=== PATIENT | male | born 1990 | race African-American/Black ===

== ENCOUNTER 2018-01-03 09:30 | Emergency (ER) | payer OTHER ==
[~2018-01-03] VITALS: Ht 182.9 cm; Wt 95.3 kg
[~2018-01-03 09:30] MED LIST: CLARITIN10 MG PO; COLACE100 MG PO; NOHOMEMEDICATIONS; NORCO 5-325 TA1 EACH PO; PREDNISONE 20 M20 M1 PO
[2018-01-03 09:53] LABS: ABSOLUTE NEUTROPHILS 8.8 thou/uL (1.4-8.2); BASOPHILS 0.2 % (0.0-2.0); HEMATOCRIT 45.4 % (42.0-52.0); HEMOGLOBIN 15.3 gm/dL (14.0-18.0); LYMPHOCYTES 15.9 % (24.0-44.0); MCH 28.1 pg (26.0-34.0); MCHC 33.8 g/dL (28.0-37.0); MCV 83.3 fL (80.0-100.0); MONOCYTES 5.5 % (1.0-8.0); PLATELET COUNT 263 thou/uL (150-400); POLYS 78.4 % (36.0-66.0); RBC 5.45 mil/uL (4.50-6.00); RDW 13.2 % (10.5-14.5); WBC 11.3 thou/uL (4.0-11.0)
[2018-01-03 10:00] LABS: CALCIUM 9.7 mg/dL (8.5-10.1); CREATININE 1.4 mg/dL (0.7-1.3); POTASSIUM 3.8 mmol/L (3.5-5.1)
[2018-01-03 10:06] LABS: ALBUMIN 4.7 g/dL (3.4-5.0); TOTAL PROTEIN 9.2 g/dL (6.4-8.2)
[2018-01-03 11:11] LABS: URINE BLOOD TRACE (Negative); URINE CLARITY CLEAR; URINE COLOR YELLOW; URINE GLUCOSE-RANDOM* NEGATIVE (Negative); URINE KETONES TRACE (Negative); URINE NITRITE-REFLEX NEGATIVE (Negative); URINE PROTEIN (DIPSTICK) 1+ (Negative); URINE SPECIFIC GRAVITY >= 1.030 (1.005-1.035); URINE UROBILINOGEN 0.2 E.U./dl (0.2-1.0)
[2018-01-03 11:14] LABS: URINE LEUKOCYTES-REFLEX TRACE (Negative)
[2018-01-03 11:15] LABS: ICTOTEST (BILI CONFIRMATORY) Negative (Negative); URINE BILIRUBIN NEGATIVE (Negative)
[2018-01-03 11:26] LABS: SQUAMOUS 0-3 Few /LPF (0-3)
[2018-01-03 11:27] LABS: CASTS None Seen /LPF (None Seen); MUCUS >6 Heavy strn/LPF (None Seen); URINE WBC-REFLEX 6-15 Few /HPF (0-5)
[2018-01-03] MEDS ORDERED: BENTYL 20 MG TA20 M1 PO (11:27)
[2018-01-03] MEDS ORDERED: PHENERGAN 25 MG25 M1 PO (11:27)
[2018-01-03 11:28] LABS: BACTERIA-REFLEX 1-9 Few /HPF (None Seen); CRYSTALS None Seen /LPF (None Seen); URINE RBC 3-10 Few /HPF (0-2)
== END 2018-01-03 12:04 | disposition home or self-care (01) ==
LOC: ER 09:30
PROVIDERS: Physician Assistant
DX: R10.11 Right upper quadrant pain (principal); R11.2 Nausea with vomiting, unspecified

== ENCOUNTER 2021-02-27 12:56 | Emergency (ER) | payer OTHER ==
[~2021-02-27] VITALS: Ht 182.9 cm; Wt 88.5 kg
[~2021-02-27 12:56] MED LIST changes: +BENTYL 20 MG TA20 M1 PO; +PHENERGAN 25 MG25 M1 PO
[2021-02-27 12:58] VITALS: BP 130/76
== END 2021-02-27 14:31 | disposition home or self-care (01) ==
LOC: ER 12:56
DX: U07.1 COVID-19 (principal); Z79.2 Long term (current) use of antibiotics